=== PATIENT | female | born 1980 | race Two or more races ===

== ENCOUNTER 2021-05-21 10:26 | Inpatient (IN) | payer BC, MEDICAID ==
[~2021-05-21] VITALS: Ht 167.6 cm; Wt 97.8 kg
[2021-05-21] MEDS ORDERED: FENTANYL PF 100 MCG/2ML IVPush PRN (11:00)
[2021-05-21] MEDS ORDERED: D5%-LACTATED RINGERS 1,000 ML IV SCH (11:00)
[2021-05-21] MEDS ORDERED: CALCIUM CARBONATE 500 MG TAB.CHEW PO PRN (11:00)
[2021-05-21] MEDS ORDERED: OXYTOCIN 30U/ 0.9% NaCL 500ML 500 ML IV ONE (11:00)
[2021-05-21] MEDS ORDERED: ONDANSETRON 2MG/ML, 2ML IVPush PRN (11:00)
[2021-05-21] MEDS ORDERED: SODIUM CITRATE/CITRIC ACID 30 ML UDC PO PRN (11:00)
[2021-05-21] MEDS ORDERED: TERBUTALINE 1 MG/ML, 1ML IVPush PRN (11:00)
[2021-05-21] MEDS ORDERED: LACTATED RINGERS 1,000 ML IV SCH (11:00)
[2021-05-21] MEDS ORDERED: METOCLOPRAMIDE 5 MG/ML, 2ML IVPush PRN (11:00)
[2021-05-21] MEDS ORDERED: ALUMINUM/MAG/SIMETHICONE 30 ML UDC PO PRN (11:00)
[2021-05-21] MEDS ORDERED: TERBUTALINE 1 MG/ML, 1ML SQ PRN (11:00)
[2021-05-21] MEDS ORDERED: OXYTOCIN 30U/ 0.9% NaCL 500ML 500 ML ONE ×2 (11:06→12:32)
[2021-05-21] MEDS ORDERED: NEWBORN KIT ONE (11:06)
[2021-05-21] MEDS ORDERED: FENTANYL PF 100 MCG/2ML ONE (11:07)
[2021-05-21] MEDS ORDERED: BUPIVACAINE 0.25% ONE (11:18)
[2021-05-21] MEDS ORDERED: FENTANYL/BUPIV./NS/PF 0 ML EPIDCONT ONE (11:18)
[2021-05-21] MEDS ORDERED: LIDOCAINE/PF 1.5% EPI 1:200K, 10 ML ONE (11:20)
[2021-05-21 11:27] LABS: BASOPHILS % (AUTO) 0 % (0-1); EOSINOPHILS % (AUTO) 1 % (1-7); LYMPHOCYTES % (AUTO) 20 % (22-44); MEAN CORPUSCULAR HEMOGLOBIN 28.9 pg (27.0-34.8); MEAN CORPUSCULAR HGB CONC 33.4 g/dL (32.4-35.8); MEAN PLATELET VOLUME 7.9 fL (7.4-10.4); MONOCYTES % (AUTO) 7 % (2-9); NEUTROPHILS % (AUTO) 72 % (42-75); PLATELET COUNT 356 x10^3/uL (130-400); RED BLOOD COUNT 3.58 x10^6/uL (3.82-5.3); RED CELL DISTRIBUTION WIDTH 14.8 % (9.6-15.2)
[2021-05-21] MEDS: OXYTOCIN 30U/ 0.9% NaCL 500ML 500 ML IV SCH (13:13)
[2021-05-21] MEDS ORDERED: ONDANSETRON 2MG/ML, 2ML IV PRN (13:30)
[2021-05-21] MEDS ORDERED: MISOPROSTOL 200 MCG TABLET SL PRN (13:30)
[2021-05-21] MEDS ORDERED: OXYcodone/APAP 5/325MG TABLET PO PRN ×2 (13:30)
[2021-05-21] MEDS: LACTATED RINGERS 1,000 ML IV SCH (13:30)
[2021-05-21] MEDS ORDERED: BISACODYL 10 MG SUPP PR PRN (13:30)
[2021-05-21] MEDS ORDERED: SIMETHICONE 80 MG CHEW TAB PO PRN (13:30)
[2021-05-21] MEDS ORDERED: METHYLERGONOVINE 0.2 MG/ML IM PRN (13:30)
[2021-05-21 13:55] VITALS: BP 116/77
[2021-05-21] MEDS ORDERED: IBUPROFEN 600 MG TABLET ONE (15:36)
[2021-05-21] MEDS: IBUPROFEN 600 MG TABLET PO PRN (15:38)
[2021-05-21 18:05] VITALS: BP 115/69
[2021-05-21 20:00] VITALS: BP 110/71
[2021-05-21] MEDS ORDERED: DIPH,PERTUSS(ACELL),TET VAC/PF NC IM-VACC ONE ×2 (20:21→20:30)
[2021-05-21] MEDS ORDERED: DIPHTHERIA-TETANUS ADULT 0.5ML IM-VACC ONE (20:30)
[2021-05-21] MEDS: DOCUSATE 100 MG CAPSULE PO PRN (20:33)
[2021-05-21 21:32] LABS: BASOPHILS % (AUTO) 0 % (0-1); EOSINOPHILS % (AUTO) 1 % (1-7); LYMPHOCYTES % (AUTO) 18 % (22-44); MEAN CORPUSCULAR HEMOGLOBIN 28.9 pg (27.0-34.8); MEAN CORPUSCULAR HGB CONC 33.1 g/dL (32.4-35.8); MONOCYTES % (AUTO) 9 % (2-9); NEUTROPHILS % (AUTO) 72 % (42-75); PLATELET COUNT 321 x10^3/uL (130-400); RED BLOOD COUNT 3.46 x10^6/uL (3.82-5.3); RED CELL DISTRIBUTION WIDTH 14.7 % (9.6-15.2)
[2021-05-22 00:20] VITALS: BP 113/76
[2021-05-22] MEDS: IBUPROFEN 600 MG TABLET PO PRN ×3 (02:30→21:19)
[2021-05-22 04:00] VITALS: BP 110/72
[2021-05-22] MEDS: DOCUSATE 100 MG CAPSULE PO PRN ×2 (07:28→21:19)
[2021-05-22] MEDS: PRENATAL VIT/IRON/FA 1 EACH TABLET PO SCH (07:30)
[2021-05-22 08:00] VITALS: BP 109/72
[2021-05-22] MEDS: OXYTOCIN 30U/ 0.9% NaCL 500ML 500 ML IV SCH (19:30)
[2021-05-22] MEDS: LACTATED RINGERS 1,000 ML IV SCH (19:30)
[2021-05-22 20:00] VITALS: BP 129/71
[2021-05-23] MEDS: IBUPROFEN 600 MG TABLET PO PRN (03:17)
[2021-05-23] MEDS: LACTATED RINGERS 1,000 ML IV SCH (05:30)
[2021-05-23] MEDS: OXYTOCIN 30U/ 0.9% NaCL 500ML 500 ML IV SCH (05:30)
[2021-05-23 07:37] VITALS: BP 117/77
[2021-05-23] MEDS: PRENATAL VIT/IRON/FA 1 EACH TABLET PO SCH (09:00)
[2021-05-23] MEDS ORDERED: IBUP-1222 PO (13:11)
[2021-05-23] MEDS ORDERED: FERR325T23 PO (13:12)
== END 2021-05-23 16:00 | disposition home or self-care (01) | DRG 806 ==
LOC: LDOP 10:26 → EDUNIT# 10:46 → LDIP 10:46 → 2NW 13:48
PROVIDERS: ADMIT Obstetrics & Gynecology; ATTEND Obstetrics & Gynecology
PROC: 10E0XZZ Delivery of Products of Conception, External Approach (ICD-10-PCS; principal; 2021-05-21)
PROC: 3E0R3BZ Introduction of Anesthetic Agent into Spinal Canal, Percutaneous Approach (ICD-10-PCS; 2021-05-21)
PROC: 00HU33Z Insertion of Infusion Device into Spinal Canal, Percutaneous Approach (ICD-10-PCS; 2021-05-21)
DX: O62.3 Precipitate labor (principal); O26.873 Cervical shortening, third trimester; Z37.0 Single live birth; O10.92 Unspecified pre-existing hypertension complicating childbirth; J45.909 Unspecified asthma, uncomplicated; O99.52 Diseases of the respiratory system complicating childbirth; Z20.822 Contact with and (suspected) exposure to COVID-19; Z3A.38 38 weeks gestation of pregnancy; Z87.891 Personal history of nicotine dependence
CPT/HCPCS: 36415; 85025; 86592; 86850; 86900; 87635; 90714; G0378; J2590; J7120